=== PATIENT | female | born 1930 | race Caucasian/White ===

== ENCOUNTER 2018-12-16 02:04 | Inpatient (IN) | payer OTHER ==
[~2018-12-16] VITALS: Ht 121.9 cm; Wt 36.6 kg
[~2018-12-16 02:04] MED LIST: ABH; ATIVAN0.5 MG; AYR50 ML NS; FENTANYL PA25 MCG/HR; HYDROCODONE-AP1 EAC6; LASIX 20 MG TAB20 MG PO; MAPAP325 MG PO; SENEXON-S TABL1 EACH; SEROQUEL 50 MG50 MG; SEROQUEL 50 MG50 MG PO; TRAMADOL 50 MG50 MG PO
[2018-12-16 02:06] VITALS: BP 128/67
[2018-12-16] MEDS ORDERED: DEPAKOTE 250MG250 M1 PO (02:24)
[2018-12-16] MEDS ORDERED: SENNA8.6 MG PO (02:25)
[2018-12-16] MEDS ORDERED: TYLENOL325 MG PO (02:26)
--- NOTE | 2018-12-16 03:47 | NUR ---
[facility] notified of diagnosis, family information obtained
--- NOTE | 2018-12-16 03:53 | NUR ---
#2 call placed to mandi Esquivel, no response
--- NOTE | 2018-12-16 04:17 | NUR ---
3rd call placed to son
--- NOTE | 2018-12-16 04:23 | NUR ---
another call placed to son without answer
[2018-12-16 05:14] VITALS: BP 148/57
[2018-12-16 05:25] VITALS: BP 149/68
[2018-12-16 06:31] LABS: HEMATOCRIT 35.4 % (37.0-47.0); HEMOGLOBIN 11.9 gm/dL (12.0-15.0); MCH 31.5 pg (26.0-34.0); MCHC 33.6 g/dL (28.0-37.0); MCV 93.8 fL (80.0-100.0); RBC 3.78 mil/uL (4.20-5.00); RDW 15.3 % (10.5-14.5); WBC 6.4 thou/uL (4.0-11.0)
[2018-12-16 06:40] LABS: CALCIUM 8.7 mg/dL (8.5-10.1); CREATININE 0.8 mg/dL (0.6-1.0); MAGNESIUM 2.3 mg/dL (1.8-2.4); POTASSIUM 3.2 mmol/L (3.5-5.1)
[2018-12-16 06:46] LABS: APTT 26.7 Seconds (24.5-32.8)
--- NOTE | 2018-12-16 08:50 | NUR ---
PT. ARRIVED AT 0546 TO FLOOR; CONFUSED; ALERT TO PERSON; C/O PAIN WITH RUE MOVEMENT; IV STARTED; ON BED; ABLE TO FEED BY HERSELF; DRESSING APPLIED OVER R. ELBOW; CONSULT ORDER; ASSESSMENT CHARGED; PASSED ON REPORT TO BAN CONTRERAS
[2018-12-16 12:46] VITALS: BP 115/55
[2018-12-16 16:00] VITALS: BP 95/69
--- NOTE | 2018-12-16 17:28 | NUR ---
ASSESSMENT CHARTED, ORIENTEDX1, CONFUSED, INCONTINENT, VSS, INFUSED POTASSIUM, NO COMPLAINTS OF PAIN, WILL CONTINUE TO [facility]TI[facility]
[2018-12-16 20:12] VITALS: BP 129/66
[2018-12-17 04:47] VITALS: BP 123/54
--- NOTE | 2018-12-17 06:34 | NUR ---
ASSUME CARE 1900. VITALS ARE STABLE. PT HAS A HISTORY OF DEMENTIA AND IS A/O TO PERSON ONLY. PT IS FUSSY AND GETS EASILY AGITATED WITH TOUCH. LACERATION ON FOREHEAD INTACT WITH NO ACTIVE BLEEDING NOTED. PROGRESSING SLOWLY WITH POC. PLAN IS POSSIBLE DISCHARGE BACK TO [facility] TODAY. WILL CONTINUE TO MONITOR AND FOLLOW WITH POC
[2018-12-17 08:51] VITALS: BP 112/53
[2018-12-17 12:00] VITALS: BP 101/43
--- NOTE | 2018-12-17 15:23 | NUR ---
[facility] ONLY AND AGITATED WHEN CLEANING HER. VSS, Q2 HOURS. REFUSED TO TAKE MEDS, OR EAT THIS MORNING, BUT I WAS ABLE TO FEED HER LUNCH AND SHE TOOK SCHEDULED MEDS AT 1400. AND WILL CONTINUE WITH POC.
[2018-12-17 16:00] VITALS: BP 1002/49
--- NOTE | 2018-12-17 18:29 | NUR ---
PATIENT HAD 25% OF LUNCH AND 50% OF DINNER.
[2018-12-17 19:33] VITALS: BP 120/61
--- NOTE | 2018-12-18 04:27 | NUR ---
ASSESSMENT DOCUMENTED.PT RESTING IN NO ACUTE DISTRESS.A/O TO SELF WITH CONFUSION.VSS.PT UNCO-OPERATIVE WITH CARE,KICKING AND TRYING TO HIT STAFF WHEN GIVING CARE LIKE PERICARE AND TOILETING.INCONTINENT OF BLADDER SO FAR THIS SHIFT.REFUSED ALL EVENING MEDS EVEN AFTER MUTIPLE ATTEMPTS TO ADMINISTER NOC MEDS.PT VERY IMPULSE,CURSING OUT.NO S/SX OF PAIN OR ANY DISCOMFORT NOTED.PT TO DISCHARGE TO [facility].
[2018-12-18 04:34] VITALS: BP 154/63
[2018-12-18 11:55] VITALS: BP 101/53
[2018-12-18 11:58] VITALS: BP 101/53
--- NOTE | 2018-12-18 14:28 | NUR ---
PT DISCHARGIING TODAY BACK TO [facility] FAXED DC ORDERS/SUMMARY TO FACILITY SPOKE WITH JEYSON IN ADM SHE RECEIVED DC ORDERS AND ARRANGED TRANSPORTATON VIA [facility] FOR 1600 TODAY. NOTIFIED PT'S SON (FROY) OF DC AND TRANSPORT TIME. UNIT NOTIFIED AND CHART COPY PER US. RN TO CALL REPORT TO [phone].
--- NOTE | 2018-12-18 15:56 | NUR ---
ASSUMED CARE AT SHIFT CHANGE ALERT, BUT CONFUSED. SHE IS CALM AND COOPERATIVE.VSS AND AFEBRILE, SHE ATE BF AND REFUSED LUNCH TODAY. REMAINS INTCONTENENT, AND BM TODAY. PLAN >DISCHARGE BACK TO CARE TODAY.
== END 2018-12-18 16:27 | DRG 84 ==
LOC: ER 02:04 → 2N 05:03 → EROBS 05:03 → 2N 06:43
PROVIDERS: Nurse Practitioner Acute Care; ADMIT Hospitalist
PROC: 0HQ1XZZ Repair Face Skin, External Approach (ICD-10-PCS; principal; 2018-12-16)
DX: S06.5X9A Traumatic subdural hemorrhage with loss of consciousness of unspecified duration, initial encounter (principal); G30.9 Alzheimer's disease, unspecified; F02.80 Dementia in other diseases classified elsewhere, unspecified severity, without behavioral disturbance, psychotic disturbance, mood disturbance, and anxiety; Z66 Do not resuscitate; K21.9 Gastro-esophageal reflux disease without esophagitis; W06.XXXA Fall from bed, initial encounter; F32.9 Major depressive disorder, single episode, unspecified; F41.9 Anxiety disorder, unspecified; S01.81XA Laceration without foreign body of other part of head, initial encounter; X58.XXXA Exposure to other specified factors, initial encounter; Y93.89 Activity, other specified; Y92.89 Other specified places as the place of occurrence of the external cause; Y99.8 Other external cause status
CPT/HCPCS: 10081